=== PATIENT | female | born 1975 | race Caucasian/White ===

== ENCOUNTER 2020-03-03 14:25 | Emergency (ER) | payer MEDICAID, OTHER ==
[~2020-03-03] VITALS: Ht 167.6 cm; Wt 68.0 kg
[~2020-03-03 14:25] MED LIST: NIFEDIPINE
[2020-03-03 14:32] VITALS: BP 168/108
[2020-03-03 15:41] LABS: CLARITY URINE CLEAR (CLEAR); COLOR URINE YELLOW (YELLOW); KETONES URINE TRACE (NEGATIVE); LEUKOCYTE ESTERASE URINE TRACE (NEGATIVE); NITRITE URINE NEGATIVE (NEGATIVE); OCCULT BLOOD URINE NEGATIVE (NEGATIVE); PROTEIN URINE NEGATIVE (NEGATIVE); SPECIFIC GRAVITY URINE 1.024 (1.005-1.030)
[2020-03-03] MEDS ORDERED: CEFTRIAXONE SODIUM 250 MG/VIAL IM ONE (16:15)
[2020-03-03] MEDS ORDERED: AZITHROMYCIN 500 MG TABLET PO ONE (16:15)
[2020-03-03] MEDS ORDERED: LIDOCAINE HCL 1% 20ML VIAL (Pyxis) INJ INFIL ONE (16:30)
[2020-03-06 06:07] LABS: NEISSERIA GONORRHOEAE NAA Positive (Negative)
== END 2020-03-03 16:48 | disposition home or self-care (01) ==
LOC: ER 14:25
DX: N30.00 Acute cystitis without hematuria (principal)
CPT/HCPCS: 81003; 81025; 87491; 87591; 96372; 99283; J0696; J3490